=== PATIENT | male | born 1980 | race Caucasian/White ===

== ENCOUNTER 2018-05-10 15:23 | Outpatient (CLI) | payer OTHER ==
--- NOTE | 2018-05-10 17:50 | MRI ---
MRI OF LEFT KNEE PERFORMED WITHOUT CONTRAST ENHANCEMENT: 05/10/18 HISTORY: Left knee pain. Anterior and posterior cruciate ligaments are intact. The medial as well as lateral meniscus have a normal shape and appearance. The medial and lateral col lateral ligaments and iliotibial band regions are normal. Patellar articular cartilage is intact. There are edema changes associated with the trochlear cartila ge on the lateral side of the trochlear groove and there is subchondral marrow edema change associate d with this. Articular cartilage appears slightly thinned in this region. There is some T1 and T2 nash k signal change in the cartilage suggesting there is some cartilaginous ossification and calcificatio n. The medial and lateral patellar retinaculum and quadriceps and patellar tendons are normal. 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 There is irregul arity to the subchondral bony plate and subchondral marrow edema associated with these findings. POS: MELY
== END 2018-05-10 15:24 | disposition home or self-care (01) ==
LOC: TBSIIMAG 15:23
PROVIDERS: ATTEND Pediatrics Sports Medicine
DX: M25.562 Pain in left knee (principal); M25.462 Effusion, left knee